=== PATIENT | female | born 1955 | race Hispanic/Latino ===

== ENCOUNTER 2022-10-17 13:39 | Outpatient (CLI) | payer SELFPAY | END 2022-10-17 13:40 | disposition home or self-care (01) | LOC: CSHWCC 13:39 | PROVIDERS: ATTEND Nurse Practitioner Family | DX: L89.893 Pressure ulcer of other site, stage 3 (principal); R60.0 Localized edema | CPT/HCPCS: 29581 ==

== ENCOUNTER 2022-10-24 15:07 | Outpatient (CLI) | payer OTHER, SELFPAY | END 2022-10-24 15:08 | disposition home or self-care (01) | LOC: CSHWCC 15:07 | PROVIDERS: ATTEND Nurse Practitioner Family | DX: L89.893 Pressure ulcer of other site, stage 3 (principal); R60.0 Localized edema ==

== ENCOUNTER 2022-10-31 14:26 | Outpatient (CLI) | payer SELFPAY | END 2022-10-31 14:27 | disposition home or self-care (01) | LOC: CSHWCC 14:26 | PROVIDERS: ATTEND Nurse Practitioner Family | DX: L89.893 Pressure ulcer of other site, stage 3 (principal); R60.0 Localized edema ==

== ENCOUNTER 2022-11-08 08:10 | Outpatient (CLI) | payer SELFPAY | END 2022-11-08 08:11 | disposition home or self-care (01) | LOC: CSHWCC 08:10 | PROVIDERS: ATTEND Nurse Practitioner Family | DX: L89.893 Pressure ulcer of other site, stage 3 (principal); R60.0 Localized edema | CPT/HCPCS: 29445; 29581 ==

== ENCOUNTER 2022-11-18 10:57 | Outpatient (CLI) | payer SELFPAY | END 2022-11-18 10:58 | disposition home or self-care (01) | LOC: CSHWCC 10:57 | PROVIDERS: ATTEND Nurse Practitioner Family | DX: L89.893 Pressure ulcer of other site, stage 3 (principal); R60.0 Localized edema ==

== ENCOUNTER 2022-11-25 15:25 | Outpatient (CLI) | payer OTHER | END 2022-11-25 15:26 | disposition home or self-care (01) | LOC: CSHWCC 15:25 | PROVIDERS: ATTEND Nurse Practitioner Family | DX: L89.893 Pressure ulcer of other site, stage 3 (principal); R60.0 Localized edema | CPT/HCPCS: 99213; G0463 ==

== ENCOUNTER 2022-11-29 09:56 | Outpatient (CLI) | payer SELFPAY | END 2022-11-29 09:57 | disposition home or self-care (01) | LOC: CSHWCC 09:56 | PROVIDERS: ATTEND Nurse Practitioner Family | DX: L89.893 Pressure ulcer of other site, stage 3 (principal); R60.0 Localized edema | CPT/HCPCS: 99213; G0463 ==

== ENCOUNTER 2022-12-17 15:02 | Outpatient (CLI) | payer SELFPAY | END 2022-12-17 15:03 | disposition home or self-care (01) | LOC: CSHWCC 15:02 | PROVIDERS: ATTEND Nurse Practitioner Family | DX: L89.893 Pressure ulcer of other site, stage 3 (principal); R60.0 Localized edema | CPT/HCPCS: 99213; G0463 ==

== ENCOUNTER 2022-12-25 15:00 | Outpatient (CLI) | payer SELFPAY | END 2022-12-25 15:01 | disposition home or self-care (01) | LOC: CSHWCC 15:00 | PROVIDERS: ATTEND Nurse Practitioner Family | DX: R60.0 Localized edema (principal) | CPT/HCPCS: 29445 ==

== ENCOUNTER 2023-01-06 15:17 | Outpatient (CLI) | payer SELFPAY | END 2023-01-06 15:18 | disposition home or self-care (01) | LOC: CSHWCC 15:17 | PROVIDERS: ATTEND Nurse Practitioner Family | DX: L89.893 Pressure ulcer of other site, stage 3 (principal); R60.0 Localized edema | CPT/HCPCS: 29445 ==

== ENCOUNTER 2023-01-20 12:09 | Outpatient (CLI) | payer SELFPAY | END 2023-01-20 12:10 | disposition home or self-care (01) | LOC: CSHWCC 12:09 | PROVIDERS: ATTEND Nurse Practitioner Family | DX: L89.893 Pressure ulcer of other site, stage 3 (principal); R60.0 Localized edema | CPT/HCPCS: 99213; G0463 ==

== ENCOUNTER 2023-11-04 15:01 | Outpatient (CLI) | payer SELFPAY | END 2023-11-04 15:02 | disposition home or self-care (01) | LOC: CSHWCC 15:01 | PROVIDERS: ATTEND Preventive Medicine Undersea and Hyperbaric Medicine | DX: L89.613 Pressure ulcer of right heel, stage 3 (principal); E11.621 Type 2 diabetes mellitus with foot ulcer; L97.509 Non-pressure chronic ulcer of other part of unspecified foot with unspecified severity | CPT/HCPCS: 29445; 97597 ==

== ENCOUNTER 2023-11-13 10:49 | Outpatient (CLI) | payer OTHER, SELFPAY | END 2023-11-13 10:50 | disposition home or self-care (01) | LOC: CSHWCC 10:49 | PROVIDERS: ATTEND Preventive Medicine Undersea and Hyperbaric Medicine | DX: L89.613 Pressure ulcer of right heel, stage 3 (principal); E11.621 Type 2 diabetes mellitus with foot ulcer; L97.509 Non-pressure chronic ulcer of other part of unspecified foot with unspecified severity | CPT/HCPCS: 29445; 99213; G0463 ==

== ENCOUNTER 2023-11-20 13:04 | Outpatient (CLI) | payer OTHER, SELFPAY | END 2023-11-20 13:05 | disposition home or self-care (01) | LOC: CSHWCC 13:04 | PROVIDERS: ATTEND Preventive Medicine Undersea and Hyperbaric Medicine | DX: E11.621 Type 2 diabetes mellitus with foot ulcer (principal); L89.613 Pressure ulcer of right heel, stage 3 | CPT/HCPCS: 11042 ==

== ENCOUNTER 2023-12-02 13:19 | Outpatient (CLI) | payer SELFPAY, OTHER | END 2023-12-02 13:20 | disposition home or self-care (01) | LOC: CSHWCC 13:19 | PROVIDERS: ATTEND Nurse Practitioner Family | DX: L89.613 Pressure ulcer of right heel, stage 3 (principal); E11.621 Type 2 diabetes mellitus with foot ulcer | CPT/HCPCS: 11042 ==

== ENCOUNTER 2023-12-08 08:29 | Outpatient (CLI) | payer SELFPAY, OTHER | END 2023-12-08 08:30 | disposition home or self-care (01) | LOC: CSHWCC 08:29 | PROVIDERS: ATTEND Nurse Practitioner Family | DX: L89.613 Pressure ulcer of right heel, stage 3 (principal); E11.621 Type 2 diabetes mellitus with foot ulcer; L97.509 Non-pressure chronic ulcer of other part of unspecified foot with unspecified severity | CPT/HCPCS: 11042 ==

== ENCOUNTER 2023-12-16 15:11 | Outpatient (CLI) | payer OTHER | END 2023-12-16 15:12 | disposition home or self-care (01) | LOC: CSHWCC 15:11 | PROVIDERS: ATTEND Nurse Practitioner Family | DX: E11.621 Type 2 diabetes mellitus with foot ulcer (principal); L89.613 Pressure ulcer of right heel, stage 3 | CPT/HCPCS: 11042 ==

== ENCOUNTER 2023-12-23 16:24 | Outpatient (CLI) | payer OTHER | END 2023-12-23 16:25 | disposition home or self-care (01) | LOC: CSHWCC 16:24 | PROVIDERS: ATTEND Nurse Practitioner Family | DX: L89.613 Pressure ulcer of right heel, stage 3 (principal); E11.621 Type 2 diabetes mellitus with foot ulcer; L97.509 Non-pressure chronic ulcer of other part of unspecified foot with unspecified severity | CPT/HCPCS: 11042 ==